=== PATIENT | male | born 1950 | race African-American/Black ===

== ENCOUNTER 2020-08-11 14:07 | Outpatient (REF) | payer MEDICARE, SELFPAY ==
--- NOTE | 2020-08-11 15:36 | ECG_ITS ---
Test Reason : PREPROC EXAM Blood Pressure : / mmHG Vent. Rate : 067 BPM Atrial Rate : 067 BPM P-R Int : 188 ms QRS Dur : 100 ms QT Int : 396 ms P-R-T Axes : 064 -55 -46 degrees QTc Int : 418 ms Normal sinus rhythm Left anterior fascicular block ST & T wave abnormality, consider inferior ischemia Abnormal ECG No previous ECGs available Referred By: Sharad Fernando Electronically Signed By:MICHEL NORWOOD MD
[2020-08-11 17:32] LABS: MANUAL DIFF FLAG NO
[2020-08-11 17:46] LABS: Eosinophils Absolute Auto 0.1 X10*3/uL (0.0-0.4); Eosinophils Percent Auto 3.3 % (0-4); Hematocrit 36.3 % (42-52); Hemoglobin 11.7 g/dl (14.0-18.0); Imm Gran Abs Auto 0.01 X10*3/uL (0.00-0.03); Imm Gran Pct Auto 0.3 % (0.0-0.4); Lymphocytes Absolute Auto 1.8 X10*3/uL (1.2-4.9); Lymphocytes Percent Auto 44.7 % (20-40); Mean Corpuscular HGB Conc 32.2 g/dl (31.0-36.0); Mean Corpuscular Hemoglobin 28.3 pg (27.0-33.0); Mean Corpuscular Volume 87.7 fL (80-98); Mean Platelet Volume 10.1 fL (9.4-12.4); Monocytes Absolute Auto 0.4 X10*3/uL (0.1-1.2); Monocytes Percent Auto 9.1 % (2-11); Neutrophils Absolute Auto 1.7 X10*3/uL (2.0-8.3); Neutrophils Percent Auto 41.6 % (45-73); Platelet Count 294 X10*3/uL (160-400); Red Blood Count 4.14 X10*6/uL (4.60-5.80); Red Cell Distribution Width 15.1 % (11.0-16.0)
[2020-08-11 17:55] LABS: Opiate Screen Urine Not Detected (Not Detect)
[2020-08-11 18:04] LABS: Anion Gap 13 (12-20); Blood Urea Nitrogen 19 mg/dL (9-16); Calcium 9.2 mg/dL (8.4-10.2); Carbon Dioxide 28 mmol/L (22-29); Chloride 105 mmol/L (96-108); Estimated Glomerular Filt Rate > 60; Glucose Random 73 mg/dL (60-115); Potassium 4.6 mmol/l (3.3-5.1); Sodium 141 mmol/L (135-145)
== END 2020-08-11 14:08 | disposition home or self-care (01) ==
LOC: HO.LAB 14:07
PROVIDERS: Absent Provider Physician Assistant; Visit Provider Orthopaedic Surgery
DX: Z01.810 Encounter for preprocedural cardiovascular examination (principal); Z01.812 Encounter for preprocedural laboratory examination; F19.10 Other psychoactive substance abuse, uncomplicated
CPT/HCPCS: 36415; 80048; 80307; 85025; 93005

== ENCOUNTER 2020-08-26 08:14 | Outpatient (REF) | payer MEDICARE, SELFPAY ==
--- NOTE | 2020-08-26 08:22 | CT_ITS ---
EXAMINATION: CT LEFT SHOULDER CLINICAL INFORMATION: Left shoulder pain. Primary osteoarthritis. COMPARISON: None TECHNIQUE: 2 mm thin axial and reformatted 2 mm thin sagittal and coronal images of left shoulder were obtained without contrast. DLP: 485 mGy-cm FINDINGS: There is severe loss of left glenohumeral joint space with cephalic migration of humeral head in relation to glenoid with moderate degenerative enthesophytes along the medial and anterior humeral head. In addition, there is a 2 cm loose body posterior to the glenoid within the posterior joint space. Also visualized is a 2 cm os acromiale or degenerative large acromial enthesophyte. The AC joint is maintained intact without any bony erosive changes. There is no lytic process seen. No sclerotic process seen either. There is likely mild joint effusion. No visible fracture or dislocation. CT/CT shoulder LT wo con IMPRESSION: Degenerative arthritic changes glenohumeral joint with large anterior and posterior enthesophytes. 2 cm loose body posterior to glenoid within the posterior joint space. Also visualized are 2 cm os acromiale or enthesophyte from degeneration osteoarthritis. There is no lytic process seen. Mild joint effusion.
== END 2020-08-26 08:15 | disposition home or self-care (01) ==
LOC: HO.CT 08:14
PROVIDERS: Visit Provider Physician Assistant
DX: M19.012 Primary osteoarthritis, left shoulder (principal)
CPT/HCPCS: 73200

== ENCOUNTER 2020-09-10 | Outpatient (REF) | payer MEDICARE, SELFPAY ==
[2020-08-25 12:01] VITALS: BP 141/83; PULSE 82; RESP 20; O2SAT 99; BMI 29.9
--- NOTE | 2020-08-25 12:53 | P.CONAN_ITS ---
HPI - Anesthesia Eval Consult details Narrative: 70yo M for L Total Shoulder PCP cleared Pending: [facility] Past Medical History Medical History (Updated 08/25/20 @ 12:55 by Cece Coelho) Arthritis Back pain COPD (chronic obstructive pulmonary disease) Elevated cholesterol Family history of sickle cell disease Hepatitis HTN (hypertension) Lab test negative for COVID-19 virus Substance abuse Wears dentures Surgical History Surgical History (Updated 08/25/20 @ 12:23 by Sofia Karimi) H/O colonoscopy History of surgical removal of ganglion cyst Hx of rotator cuff surgery Hx of tonsillectomy Personal history of surgery to other organs History of Problems with Anesthesia: No Social History Social History (Updated 08/25/20 @ 12:54 by Cece Coelho) Smoking Status: Current every day smoker Cigarettes Per Day: 4 Years Smoked: 67 Smoked in Last 30 Days: Yes Substance Use Type: Crack/Cocaine, Former Substance User, Heroin and Marijuana Substance Use Type Other:: past history poly substance use Last Used Substance Other:: 1 year Narrative Narrative: [facility] 4 months ago with CP. ACS ruled out. Discharge summary and cardiac testing available on chart. Meds Allergies Allergy/AdvReac Type Severity Reaction Status Date / Time diphenhydramine Allergy Mild PASSED Verified 08/25/20 12:34 [From [email or web address]] OUT Home Medications Medication Instructions Recorded Confirmed Type aspirin 81 mg tablet,delayed 81 mg PO DAILY 08/11/20 08/25/20 History release hydrochlorothiazide 12.5 mg tablet 12.5 mg PO DAILY 08/11/20 08/25/20 History lisinopril 40 mg tablet 40 mg PO DAILY 08/11/20 08/25/20 History multivitamin 1 tab PO QAM 08/11/20 08/25/20 History naproxen 500 mg tablet 500 mg PO BID PRN 08/11/20 08/25/20 History acetaminophen [Acetaminophen Extra 500 mg PO Q6H PRN 08/25/20 08/25/20 History Strength] albuterol sulfate [ProAir HFA] 2 puff INHALATION Q4-6H PRN 08/25/20 08/25/20 History melatonin 3 mg PO BEDTIME 08/25/20 08/25/20 History Exam Exam Date and Time: August 25, 2020 1253 Height,Weight and Vital Signs: Height 5 ft 8 in Weight 89.5 kg Last Vital Signs Pulse 82 08/25/20 12:01 Resp 20 08/25/20 12:01 BP 141/83 H 08/25/20 12:01 Pulse Ox 99 08/25/20 12:01 Pertinent Lab Results Pertinent Lab Results: Laboratory Tests 08/11/20 08/11/20 15:40 15:40 WBC 4.0 L Hgb 11.7 L Hct 36.3 L Plt Count 294 Sodium 141 Potassium 4.6 Chloride 105 Carbon Dioxide 28 BUN 19 H Creatinine 1.17 Narrative Narrative: EKG 08/11/2020: NSR@67, LAFB, ST&T wave abnormality - ? inferior infarct (seen on EKG 12/2019 and 03/2020) Stress/MIBI 03/2020: Negative for ischemia, nml perfusion, mild reduced LV sys function with EF of 50% Airway Mallampati Class: I TM Dist: >3cm Neck ROM: Full Denture: Upper and Lower Heart: RRR Lungs: CTAB Assessment and Plan Assessment Anesthesia Assessment: Anesthesia Plan Discussed, Smoking Cess. Discussed and PAT Visit
[2020-08-27 15:07] LABS: MRSA Nasal PCR NEGATIVE (Negative); SA Nasal PCR NEGATIVE (Negative)
== END 2020-09-10 00:01 ==
LOC: HO.LAB
PROVIDERS: Physician Assistant; Visit Provider Orthopaedic Surgery
DX: Z01.812 Encounter for preprocedural laboratory examination (principal); M12.812 Other specific arthropathies, not elsewhere classified, left shoulder
CPT/HCPCS: 87640; 87641

== ENCOUNTER → 2022-03-04 09:53 | Outpatient (BNVA) | payer MEDICARE, SELFPAY | PROVIDERS: Visit Provider Orthopaedic Surgery | DX: M19.012 Primary osteoarthritis, left shoulder (principal) | CPT/HCPCS: 20610; 99212; J1100 ==